=== PATIENT | male | born 1975 | race Caucasian/White ===

== ENCOUNTER 2018-02-05 04:37 | Emergency (ER) | payer SELFPAY ==
[~2018-02-05] VITALS: Ht 172.7 cm; Wt 68.0 kg
[2018-02-05 04:42] VITALS: BP 128/62; PULSE 69; RESP 16; TEMP 97.7; O2SAT 97
[2018-02-05] MEDS ORDERED: CLIN300C5 PO (05:58)
[2018-02-05] MEDS ORDERED: BACT800T5 PO (05:58)
--- NOTE | 2018-02-05 05:59 | PD ---
HPI Chief Complaint: Bite or Sting Time Seen by Provider: 05:24 Travel History International Travel<30 days: No Contact w/Intl Traveler<30days: No Traveled to known affect area: No History of Present Illness HPI GENERAL: Patient has a raised area on his dorsum of his left hand he woke up he said he thinks he was bitten by a spider or something in the night SKIN: Warm and dry. Mild raised and warm red area on the dorsum of the left hand there is no focus of induration no abscess HEAD: Atraumatic. Normocephalic. EYES: Pupils equal and round. No scleral icterus. No injection or drainage. ENT: No nasal bleeding or discharge. Mucous membranes pink and moist. NECK: Trachea midline. No JVD. CARDIOVASCULAR: Regular rate and rhythm. RESPIRATORY: No accessory muscle use. Clear to auscultation. Breath sounds equal bilaterally. GASTROINTESTINAL: Abdomen soft, non-tender, nondistended. Hepatic and splenic margins not palpable. MUSCULOSKELETAL: Extremities left hand has mild raised red area about 3 cm round no fluctuance no abscess felt NEUROLOGICAL: Awake and alert. No obvious cranial nerve deficits. Motor grossly within normal limits. Five out of 5 muscle strength in the arms and legs. Normal speech. PSYCHIATRIC: Appropriate mood and affect; insight and judgment normal. PFSH Social History Tobacco Use: No Allergies-Medications (Allergen,Severity, Reaction): Coded Allergies: No Known Allergies (Verified Allergy, Unknown, 02/05/18) Reported Meds & Prescriptions Reported Meds & Active Scripts Active Bactrim DS (Sulfamethoxazole-Trimethoprim) 800-160 Mg Tab 1 Tab PO BID Clindamycin (Clindamycin HCl) 300 Mg Cap 300 Mg PO TID Review of Systems Except as stated in HPI: all other systems reviewed are Neg Skin: Positive Lesions (left hand cellulits warm tender ) Physical Exam Narrative GENERAL: non toxic appearing SKIN: Warm and dry. HEAD: Atraumatic. Normocephalic. EYES: Pupils equal and round. No scleral icterus. No injection or drainage. ENT: No nasal bleeding or discharge. Mucous membranes pink and moist. NECK: Trachea midline. No JVD. CARDIOVASCULAR: Regular rate and rhythm. RESPIRATORY: No accessory muscle use. Clear to auscultation. Breath sounds equal bilaterally. GASTROINTESTINAL: Abdomen soft, non-tender, nondistended. Hepatic and splenic margins not palpable. MUSCULOSKELETAL: Extremities left dorsum to hand mild swelling no focal abscess without clubbing, cyanosis, or edema. No obvious deformities. NEUROLOGICAL: Awake and alert. No obvious cranial nerve deficits. Motor grossly within normal limits. Five out of 5 muscle strength in the arms and legs. Normal speech. PSYCHIATRIC: Appropriate mood and affect; insight and judgment normal. Data Data Last Documented VS Vital Signs Date Time Temp Pulse Resp B/P (MAP) Pulse Ox O2 Delivery O2 Flow Rate FiO2 02/05/18 04:42 97.7 69 16 128/62 (84) 97 Orders Orders Clindamycin (Cleocin) (02/05/18 06:00) Sulfameth-Trimeth 400-80 Mg (Bactrim 400 (02/05/18 06:00) Ed Discharge Order (02/05/18 06:41) MDM Medical Decision Making Medical Screen Exam Complete: Yes Emergency Medical Condition: Yes Differential Diagnosis Abscess vs cellulitis vs early abscess , vs folliculitis other vs possible MRSA infection Narrative Course PO antibiotics in the ER and close follow up Rx fr bactrim and clindamycin PO 10 days Diagnosis Primary Impression: Infection of hand Scripts Sulfamethoxazole-Trimethoprim (Bactrim DS) 800-160 Mg Tab 1 TAB PO BID for Infection, #14 TAB 0 Refills Prov: Ankur Garcia MD 02/05/18 Clindamycin (Clindamycin) 300 Mg Cap 300 MG PO TID for Infection, #21 CAP 0 Refills Prov: Ankur Garcia MD 02/05/18 Ankur Garcia MD Feb 05, 2018 05:58
[2018-02-05] MEDS ORDERED: CLINDAMYCIN 150 MG CAP PO ONE (06:00)
[2018-02-05] MEDS ORDERED: SULFAMETHOXAZOLE-TRIMETHOPRIM 400-80 MG TAB PO ONE (06:00)
== END 2018-02-05 07:00 | disposition home or self-care (01) ==
LOC: NEPC 04:37
DX: L08.9 Local infection of the skin and subcutaneous tissue, unspecified (principal)
CPT/HCPCS: 99283